=== PATIENT | male | born 2000 | race Caucasian/White ===

== ENCOUNTER 2022-08-08 12:37 | Emergency (ER) | payer OTHER ==
[~2022-08-08] VITALS: Ht 185.4 cm; Wt 101.3 kg
[2022-08-08] MEDS ORDERED: SUMA11AE NARES (12:46)
[2022-08-08] MEDS ORDERED: NAPR-885 PO (12:46)
[2022-08-08] MEDS ORDERED: NS 1,000 ML IV ONE (14:00)
[2022-08-08] MEDS ORDERED: METOCLOPRAMIDE INJ 10MG/2ML VIAL IV ONE (14:00)
[2022-08-08] MEDS ORDERED: diphenhydrAMINE 50MG/ML VIAL IV ONE (14:05)
[2022-08-08] MEDS ORDERED: KETOROLAC 30 MG/ML 1ML VIAL IV ONE (14:40)
[2022-08-08 15:42] VITALS: BP 108/58
== END 2022-08-08 15:44 | disposition home or self-care (01) ==
LOC: M ED 12:37
DX: G43.909 Migraine, unspecified, not intractable, without status migrainosus (principal); Z79.818 Long term (current) use of other agents affecting estrogen receptors and estrogen levels
CPT/HCPCS: 70450; 96361; 96374; 96375; 99283; J1200; J1885; J2765